=== PATIENT | male | born 1960 | race Caucasian/White ===

== ENCOUNTER → 2020-03-15 | Outpatient (CLI) | payer OTHER ==
[~2020-03-15] MED LIST: BAYER CHEWABLE81 MG PO; CALCIUM600 MG PO; CIPRO500 MG PO; CYCLOBENZAPRINE10 MG PO; FLAGYL500 MG PO; HYDROCHLOROTHIA25 MG PO; HYDROCODON-ACE1 EAC4 PO; IMURAN TAB 50 M50 MG PO; MIRALAX17 GM PO; MULTI-VITAMIN1 EACH PO; NEXIUM20 MG PO; TOPROL XL25 MG PO; VITAMIN D 40400 UNIT PO; ZESTRIL 40 MG T40 MG PO; ZOFRAN ODT 4 MG4 MG PO
== END ==
LOC: EXRD 08:59
DX: M31.30 Wegener's granulomatosis without renal involvement (principal)
CPT/HCPCS: 71046

== ENCOUNTER → 2020-07-20 | Outpatient (CLI) | payer OTHER ==
[~2020-07-20] VITALS: Ht 182.9 cm; Wt 98.4 kg
== END ==
LOC: OPSV 08:00
DX: M31.30 Wegener's granulomatosis without renal involvement (principal)
CPT/HCPCS: 96375; 96413; 96415; J1200; J2930; J7030; J9312

== ENCOUNTER → 2020-10-12 | Outpatient (CLI) | payer OTHER | LOC: EXRD 10-09 13:00 | DX: M31.30 Wegener's granulomatosis without renal involvement (principal); M85.88 Other specified disorders of bone density and structure, other site | CPT/HCPCS: 77080 ==

== ENCOUNTER → 2021-02-06 | Outpatient (CLI) | payer OTHER ==
[~2021-02-06] VITALS: Ht 182.9 cm; Wt 93.0 kg
== END ==
LOC: OPSV 08:00
DX: M31.30 Wegener's granulomatosis without renal involvement (principal)
CPT/HCPCS: 96375; 96413; 96415; J2930; J7030; J9312